=== PATIENT | male | born 2000 | race Caucasian/White ===

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

== ENCOUNTER 2022-02-18 19:21 | Emergency (ER) | payer SELFPAY ==
[~2022-02-18] VITALS: Ht 175.3 cm; Wt 59.9 kg
[~2022-02-18 19:21] MED LIST: BROMFED DM COU118 ML PO; IBUPROFEN400 MG PO; LIDOCAINE HCL50 ML PO
[2022-02-18 20:16] VITALS: BP 151/75
== END 2022-02-18 20:05 | disposition home or self-care (01) ==
LOC: FSED 19:24
DX: Z48.02 Encounter for removal of sutures (principal)
CPT/HCPCS: 99282; S0630